=== PATIENT | female | born 1990 | race Caucasian/White ===

== ENCOUNTER 2024-12-05 12:46 | Outpatient (CLI) | payer OTHER, SELFPAY | END 2024-12-05 12:47 | disposition home or self-care (01) | LOC: US 12:47 | PROVIDERS: Visit Provider Advanced Practice Midwife | DX: Z34.91 Encounter for supervision of normal pregnancy, unspecified, first trimester (principal); Z3A.08 8 weeks gestation of pregnancy | CPT/HCPCS: 76817 ==

== ENCOUNTER 2024-12-05 14:32 | Outpatient (CLI) | payer OTHER, SELFPAY | END 2024-12-05 14:33 | disposition home or self-care (01) | PROVIDERS: Visit Provider Advanced Practice Midwife | DX: Z34.81 Encounter for supervision of other normal pregnancy, first trimester (principal); Z67.30 Type AB blood, Rh positive | CPT/HCPCS: 82565; 82570; 83020; 83021; 84156; 84450; 84460; 85660; 86592; 86703; 86704; 86706; 86762; 86787; 86803; 86850; 86900; 86901; 87086; 87340 ==

== ENCOUNTER 2024-12-08 11:34 | Outpatient (CLI) | payer OTHER, SELFPAY | END 2024-12-08 11:35 | disposition home or self-care (01) | LOC: NFLDREF 12-12 01:14 | PROVIDERS: Visit Provider Advanced Practice Midwife | DX: O09.291 Supervision of pregnancy with other poor reproductive or obstetric history, first trimester (principal); Z3A.08 8 weeks gestation of pregnancy | CPT/HCPCS: 82570; 84156 ==

== ENCOUNTER 2025-02-22 12:44 | Outpatient (CLI) | payer OTHER, SELFPAY ==
--- NOTE | 2025-02-22 13:00 | CRLHL7_ITS ---
For Patients: As a result of the Century Cures Act, medical imaging exams and procedure reports are released immediately into your electronic medical record. You may view this report before your referring provider. If you have questions, please contact your health care provider. OBSTETRICAL ULTRASOUND ??? ANATOMY SURVEY, 02/22/2025 INDICATION: anatomy survey. CLINICAL HISTORY: LMP: 10/05/2024 BLADIMIR by LMP: 07/12/2025 Gestational age: 20 weeks 0 days TECHNIQUE: Real-time broussard-scale transabdominal obstetrical ultrasound was performed. PREVIOUS ULTRASOUND: 12/05/2024 FINDINGS: position: Vertex Cervix: Visualized Technique: Transabdominal Length of closed cervix: 4.2 cm Placenta position: Posterior Technique: Transabdominal Placenta tip to internal os: 5.1 cm Umbilical cord: 3-vessel cord Placental insertion: Central Amniotic fluid: 3.9 cm SDP (greater than/equal to 2 to less than 8 cm) ANATOMY SURVEY: Observed Structures Cerebellum: Yes; 2.1 cm, 21 weeks 1 day Cisterna magna: Yes; 4.8 mm Nuchal fold: Yes; 3.2 mm Lateral ventricle: Yes; 5.9 mm CSP: Yes Midline falx: Yes Choroid plexus: Yes Spine: Yes Stomach: Yes Abdominal cord insert: Yes Urinary bladder: Yes Kidneys: Yes Diaphragm: Yes Nose/lips: Yes Orbital view: Yes Profile: Yes Upper extremities: Yes Lower extremities: Yes Hands: Yes Feet: Yes 4-chamber heart: Yes LVOT: Yes RVOT: Yes 3VV: Yes 3VTV: Yes BIOMETRY BPD: 4.8 cm, 20 weeks 3 days, 70.1% HC: 17.4 cm, 19 weeks 6 days, 37.0% AC: 14.9 cm, 20 weeks 1 day, 48.3% FL: 3.1 cm, 19 weeks 4 days, 28.5% FL/AC: 20.88% HC/AC ratio: 1.17 heart rate: 152 bpm age by this ultrasound: 20 weeks 2 days BLADIMIR by this ultrasound: 07/10/2025 Estimated weight: 320.17 grams (0 pounds 11 ounces) Percentile by BLADIMIR: 39.9% IMPRESSION: 1) Normal anatomic survey. 2) Concordance of clinical and sonographic dating. JAKE EDWARDS M.D. Diagnostic Radiologist [email or web address] Transcribed: 4:[address]/Dictated by: Jake Edwards MD @ 02/22/2025 4:02:00 PM (Electronically Signed)
== END 2025-02-22 12:45 | disposition home or self-care (01) ==
LOC: US 12:44
PROVIDERS: Visit Provider Advanced Practice Midwife
DX: Z34.82 Encounter for supervision of other normal pregnancy, second trimester (principal); Z3A.20 20 weeks gestation of pregnancy
CPT/HCPCS: 76805

== ENCOUNTER 2025-02-22 14:07 | Outpatient (CLI) | payer OTHER, SELFPAY | END 2025-02-22 14:08 | disposition home or self-care (01) | LOC: NFLDREF 14:09 | PROVIDERS: Visit Provider Advanced Practice Midwife | DX: N18.1 Chronic kidney disease, stage 1 (principal) | CPT/HCPCS: 82043; 82570 ==

== ENCOUNTER 2025-03-24 13:16 | Outpatient (CLI) | payer OTHER, SELFPAY | END 2025-03-24 13:17 | disposition home or self-care (01) | LOC: NFLDREF 03-28 12:31 | PROVIDERS: Visit Provider Advanced Practice Midwife | DX: N18.1 Chronic kidney disease, stage 1 (principal) | CPT/HCPCS: 82043; 82570 ==

== ENCOUNTER 2025-04-24 07:52 | Outpatient (CLI) | payer OTHER, SELFPAY | END 2025-04-24 07:53 | disposition home or self-care (01) | LOC: NFLDREF 04-25 14:15 | PROVIDERS: Visit Provider Advanced Practice Midwife | DX: Z34.83 Encounter for supervision of other normal pregnancy, third trimester (principal); N18.1 Chronic kidney disease, stage 1 | CPT/HCPCS: 82043; 82570; 86592 ==

== ENCOUNTER 2025-04-24 08:03 | Outpatient (CLI) | payer OTHER, SELFPAY ==
--- NOTE | 2025-04-24 08:15 | CRLHL7_ITS ---
For Patients: As a result of the Century Cures Act, medical imaging exams and procedure reports are released immediately into your electronic medical record. You may view this report before your referring provider. If you have questions, please contact your health care provider. OB ULTRASOUND FOLLOW-UP/LIMITED, 04/24/2025 CLINICAL HISTORY: Chronic HTN. COMPARISON: 02/22/2025, 12/05/2024. TECHNIQUE: Real time broussard scale imaging of the fetus was performed. Multiple transabdominal broussard-scale color and M-mode Doppler images were obtained. FINDINGS: BLADIMIR by LMP: 07/12/2025. GA: 28 weeks 5 days. Cervix: Not visualized. Positioning: Breech, matthew breech. Amniotic Fluid: 7.3 cm SDP. Placenta: Technique: TA. Placenta Position: Anterior, posterior. Dopplers: Heart Rate: 134 bpm. BIOMETRY: BPD: 7.2 cm, 28 weeks 6 days. 44% HC: 26.4 cm, 28 weeks 5 days. 19% AC: 24.8 cm, 29 weeks 0 days. 51% FL: 5.3 cm, 28 weeks 1 day. 19% FL/AC Ratio: 21.33% HC/AC Ratio: 1.07. EFW: 1262 grams, 2 lb 13 oz. age by this US: 28 weeks 5 days. BLADIMIR by this US: 07/12/2025. Percentile by BLADIMIR: 34% IMPRESSION: 1. weight is at the 34th percentile. 2. Probable succenturiate placenta lobe along the anterior uterus. Doc Bolton M.D. Body/Diagnostic Radiologist [email or web address] Transcribed: 3:49 pm DW/Dictated by: Doc Bolton MD @ 04/26/2025 3:33:00 PM (Electronically Signed)
== END 2025-04-24 08:04 | disposition home or self-care (01) ==
LOC: US 08:05
PROVIDERS: Visit Provider Advanced Practice Midwife
DX: O10.913 Unspecified pre-existing hypertension complicating pregnancy, third trimester (principal); Z3A.28 28 weeks gestation of pregnancy
CPT/HCPCS: 76816

== ENCOUNTER 2025-04-28 08:20 | Outpatient (CLI) | payer OTHER, SELFPAY | END 2025-04-28 08:21 | disposition home or self-care (01) | LOC: NFLDREF 05-04 22:43 | PROVIDERS: Visit Provider Internal Medicine Nephrology | DX: N18.1 Chronic kidney disease, stage 1 (principal) | CPT/HCPCS: 80069; 82043; 82570; 84450; 84460 ==

== ENCOUNTER 2025-05-17 07:06 | Outpatient (CLI) | payer OTHER, SELFPAY ==
--- NOTE | 2025-05-17 07:15 | CRLHL7_ITS ---
For Patients: As a result of the Century Cures Act, medical imaging exams and procedure reports are released immediately into your electronic medical record. You may view this report before your referring provider. If you have questions, please contact your health care provider. OB ULTRASOUND FOLLOW-UP GROWTH TRANSABDOMINAL Clinical History: BLADIMIR by US: 07/12/2025. GA: 32 w, 0 d. Single. Comparison: Ultrasound 04/24/2025 and 02/22/2025. INDICATION: CHTN, velamentous cord insertion. TECHNIQUE: Real time broussard scale imaging of the fetus was performed. Transabdominal imaging performed. CERVIX: Not visualized. POSITIONING: Breech. AMNIOTIC FLUID: 5.1 cm SDP (N: greater than 2 x 1 cm) PLACENTA: Technique: Transabdominal. PLACENTA POSITION: Anterior, posterior. DOPPLER: heart rate: 134 bpm. BIOMETRY: BPD: 8.0 cm. 32 w, 1 d, 47 percent. HC: 29.6 cm. 32 w, 5 d, 31 percent. AC: 27.7 cm. 31 w, 6 d, 42 percent. FL: 5.8 cm. 30 w, 2 d, 6 percent. FL/AC ratio: 20.92 percent. HC/AC ratio: 1.07. EFW: 1773 g. Weight: 3 lbs, 15 oz. age by this US: 31 w, 5 d. BLADIMIR by this US: 07/14/2025. Percentile by BLADIMIR: 23 percent. IMPRESSION: 1. Sonographic gestational age 31 weeks 5 days and sonographic due date 07/14/2025. Good correlation with dates. Normal interval growth. 2. Estimated weight 23rd percentile. Abdominal circumference 42nd percentile. 3. Velamentous cord insertion appears to be present although limited due to position. Placenta is also bilobed. Jake Wayne M.D. Diagnostic Radiologist [email or web address] SP/Dictated by: Jake Wayne MD @ 05/17/2025 5:35:00 PM (Electronically Signed)
== END 2025-05-17 07:07 | disposition home or self-care (01) ==
LOC: US 07:06
PROVIDERS: Visit Provider Advanced Practice Midwife
DX: O10.913 Unspecified pre-existing hypertension complicating pregnancy, third trimester (principal); O43.123 Velamentous insertion of umbilical cord, third trimester; Z3A.31 31 weeks gestation of pregnancy
CPT/HCPCS: 76816

== ENCOUNTER 2025-06-14 12:07 | Outpatient (CLI) | payer OTHER, SELFPAY ==
--- NOTE | 2025-06-14 12:15 | CRLHL7_ITS ---
For Patients: As a result of the Century Cures Act, medical imaging exams and procedure reports are released immediately into your electronic medical record. You may view this report before your referring provider. If you have questions, please contact your health care provider. OB ULTRASOUND LMP: 10/05/2024. BLADIMIR by LMP: 07/12/2025. GA: 36 w, 0 d. Single. INDICATION: CHTN, velamentous. TECHNIQUE: Real time grayscale imaging of the fetus was performed. Transabdominal. CERVIX: Not visualized. POSITIONING: Eliezer Breech. AMNIOTIC FLUID: 6.1 cm. SDP (N: greater than 2 x 1 cm) BIOPHYSICAL PROFILE: 2: Gross body movements 2: tone 2: Respiratory activity 2: Amniotic fluid SDP (N: greater than 2 x 1 cm) 8/8: Total score PLACENTA: Technique: Transabdominal. PLACENTA POSITION: Anterior, Posterior. DOPPLER: heart rate: 149 bpm. BIOMETRY: BPD: 8.9 cm. 35 w, 5 d, 52 percent. HC: 32.6 cm. 36 w, 6 d, 40 percent. AC: 31.1 cm. 35 w, 0 d, 32 percent. FL: 6.9 cm. 35 w, 3 d, 29 percent. FL/AC ratio: 22.17 percent. HC/AC ratio: 1.05. EFW: 2665 g. Weight: 5 lbs, 14 oz. age by this US: 35 w, 5 d. BLADIMIR by this US: 07/14/2025. Percentile by BLADIMIR: 34 percent. IMPRESSION: 1. Normal biophysical profile score 8/8. 2. Sonographic gestational age 35 weeks 5 days and sonographic due date 07/14/2025. Good correlation with dates. Normal interval growth. 3. Estimated weight 34th percentile. Abdominal circumference 32nd percentile. Jake Wayne M.D. Diagnostic Radiologist [email or web address] MI/josh moreno/Dictated by: Jake Wayne MD @ 06/14/2025 3:00:00 PM (Electronically Signed)
== END 2025-06-14 12:08 | disposition home or self-care (01) ==
PROVIDERS: Visit Provider Advanced Practice Midwife
DX: O10.913 Unspecified pre-existing hypertension complicating pregnancy, third trimester (principal); O43.123 Velamentous insertion of umbilical cord, third trimester; Z3A.35 35 weeks gestation of pregnancy
CPT/HCPCS: 76816; 76819

== ENCOUNTER 2025-06-14 15:34 | Outpatient (CLI) | payer OTHER, SELFPAY ==
[2025-06-15 14:01] LABS: Strep B DNA Probe Negative (Negative)
[2025-06-15 14:50] LABS: Strep B Susceptibility Needed? No
== END 2025-06-14 15:35 | disposition home or self-care (01) ==
LOC: NFLDREF 15:34
PROVIDERS: Visit Provider Advanced Practice Midwife
DX: O10.913 Unspecified pre-existing hypertension complicating pregnancy, third trimester (principal); Z3A.36 36 weeks gestation of pregnancy
CPT/HCPCS: 87081; 87653

== ENCOUNTER 2025-07-07 05:39 | Inpatient (IN) | payer OTHER, SELFPAY ==
[2025-07-07] VITALS (22 sets, daily range): BP systolic 116–143; BP diastolic 60–88; PULSE 55–73; RESP 12–20; TEMP 36.4–37.4; O2SAT 96–100; BMI 36.0
[2025-07-07] MEDS: LACTATED RINGERS 1000 ML 1,000 ML 999 ML IV (06:13)
[2025-07-07 06:19] LABS: Hematocrit* 37.0 % (33.0-51.0); Hemoglobin* 12.4 gm/dL (12.0-16.0); Immature Granulocytes Abs Auto 0.10 K/uL (0.00-0.30); Immature Granulocytes Pct Auto 1.1 %; Lymphocytes Absolute Auto 1.40 K/uL (0.90-2.90); Mean Corpuscular HGB Conc 34 gm/dL (32-36); Mean Corpuscular Hemoglobin 30 pg (26-34); Mean Corpuscular Volume 89 fL (80-100); RDW Coefficient of Variation % 13.6 % (11.5-15.5); Red Blood Count* 4.16 m/uL (4.00-5.20); Slide Review Reflex No; White Blood Count* 8.89 K/uL (4.50-11.00)
[2025-07-07 06:37] LABS: Alanine Aminotransferase* 17 U/L (4-35); Aspartate Amino Transferase* 45 U/L (12-35); Blood Urea Nitrogen* 8 mg/dL (5-24); Creatinine* 0.4 mg/dL (0.5-1.5); Estimated Glomerular Filt Rate 133 ml/min
--- NOTE | 2025-07-07 07:13 | W.PM.LDBA ---
Subjective History of Present Illness Date Seen: 07/07/25 Narrative: Patient is being admitted to Labor and Delivery for repeat . She is a 35 year old at 39 2/7 weeks gestation. Her full history and physical was dictated by Nimco Hickman CNM on 06/26/25. Please see this for details. Specific Issues/Plans Partner: Srikanth? Daughter: Misa H&P:?Completed 06/26/2025 by GIOVANY Jeffries #? CHTN Hx of superimposed pre-eclampsia w/ SF last , magnesium given (Pt reports HELLP, this is not in the records) Baseline labs: WNL, 24 hour p/c ratio 0.32 Recommended baby ASA Previous considered CHTN but normal BP's between pregnancies Growth US every 4 weeks starting at 28 weeks.? testing form completed 04/24 28 week growth: 34%ile 32 week growth: 23%ile 36 week growth: 34%ile Delivery recommended at 38 0/7-39 6/7weeks? #? Stage 1?Chronic Kidney disease Nephrology visit at 12 weeks, pt to schedule already established with them: completed 01/31/2025 Recommend close monitor of BP, initiate labetalol if 140/90s Baby ASA, continue Recommend monthly urinalysis with microalbumin to creatinine ratio: ordered and have remained WNL Formal follow-up with nephrology in April with labs (urine and renal panel), all stable. Pt reports she will return to him Available as needed for concerns or questions in Reports that NSAIDS are fine # Hx of section C/s for Arrest of descent in LOT presentation, pushed x 3 hours Desires repeat c/s. Requested 07/05/25 at 39w0d. Consult 05/10/25 with NDP, consent reviewed and signed. Requested delivery on 07/05/25. # Daughter has low platelets (<10K), no formal diagnosis Consider avoiding FSE/IUPC: Desires RLTCS # Succenturiate Placenta with, 32 wk US reports Velamentous cord insertion Pt desires to continue testing with suspicion for velamentous. Addendum requested to address velamentous Weekly testing starting at 36 weeks: testing form completed 04/24 Growth US every 4 weeks starting at 28 weeks: see above Recommend delivery: elective considered at >39 0/7 weeks # Eliezer Breech presentation at 36 weeks ? Imaging:?? Anatomy US (02/22/2025): IMPRESSION: 1)Normal anatomic survey. 2)Concordance of clinical and sonographic dating. ? Growth US (04/24/2025): EFW 34%; bilobed placenta with anterior and posterior lobes and suspected velamentous cord insertion Growth US (05/17/2025): IMPRESSION: 1. Sonographic gestational age 31 weeks 5 days and sonographic due date 07/14/2025. Good correlation with dates. Normal interval growth. 2. Estimated weight 23rd percentile. Abdominal circumference 42nd percentile. 3. Velamentous cord insertion appears to be present although limited due to position. Placenta is also bilobed. Growth US (06/14/2025): IMPRESSION: 1. Normal biophysical profile score /8. 2. Sonographic gestational age 35 weeks 5 days and sonographic due date 07/14/2025. Good correlation with dates. Normal interval growth. 3. Estimated weight 34th percentile. Abdominal circumference 32nd percentile. Vaccinations:?? COVID: initial series, not boosted? Flu: 07/12/2024? Tdap: 05/04/2025? RSV: 06/05/2025 32 week mental health: stable Last pap:?01/2022, NILM, HPV neg OB - Problem Based A/P Additional Plan (1) History of section: Status: Acute (2) Chronic hypertension affecting : Status: Acute Delivery/Labor/Induction Plan Plan: Section OB Result Labs Labs: Labs today notable for BUN 8, creatinine 0.4, estimated GFR 133 AST 45, ALT 17 CBC with hemoglobin 12.4, platelets 264 OB Exam Physical Exam Vital signs: Pulse BP Pulse Ox 70 138/88 98 07/07/25 06:13 07/07/25 06:13 07/07/25 05:50 Narrative: Physical exam: General: No acute distress Psych: Alert and oriented x3, full affect HEENT: Normocephalic, atraumatic Heart: Regular rate and rhythm, no murmur rub or gallop Lungs: Clear to auscultation bilaterally Abdomen: Soft, nontender, gravid, breech presentation Lower extremities: No edema or erythema tracing: Baseline 135, accelerations present, no deceleration, moderate variability
--- NOTE | 2025-07-07 08:22 | P.OBPRC_ITS ---
Procedure Date of procedure: 07/07/25 Pre-op diagnosis: 39 weeks, 2 days gestation Previous delivery Matthew breech presentation Post-op diagnosis: same Procedure Done: Global Will [facility] bill your pro fee for this procedure?: Yes Blood Loss Measurement Type: QBL (312) Bakri Used: No IV fluids (mL): 1,200 Urine Output Comment: Clear Surgeon: Iris Cortes MD Link Fabric Machine Operator: RAGHAVENDRA Muniz Anesthesia Type: Spinal Findings: 1. Male , matthew breech presentation with sacrum left anterior, Apgars 8 and 9, weight 6 lb, 14 oz. 2. Adhesions of the omentum to the anterior abdominal wall. Otherwise normal appearance of uterus, bilateral tubes and ovaries. Procedure Name: Repeat delivery Procedure Description: Patient was taken to the operating room with IV running. She received cefazolin in preoperative prophylaxis. Spinal anesthesia had previously been administered. Corrales catheter was inserted. She was prepped and draped in the usual sterile fashion. Anesthesia was tested and found to be adequate. A low-transverse skin incision was made with a scalpel and carried through to the underlying layer of fascia with the scalpel. The subcutaneous fat was dissected off the underlying fascia with Bovie. The fascia was nicked in the midline with a scalpel, and this incision was extended laterally with scissors. The rectus muscles were in the midline. Peritoneum was identified and entered bluntly. Bovie was used to widen this opening laterally. Omental adhesions were noted to the peritoneum near the cephalic aspect of the peritoneal entry point. These adhesions were lysed with a combination of electrocautery and by cross-clamping, cutting, and suture ligating the ends. Hemostasis of the dissection bed was noted. The omentum was then moved out of the way. Lucho O retractor was inserted and tightened down, providing excellent visualization of the lower uterine segment. The bladder reflection was found to be well below the planned site for hysterotomy. Low-transverse uterine incision was made with a scalpel. Incision was widened bluntly. The infant's breech was grasped through the hysterotomy, rotated to sacrum anterior, and the hips were delivered with gentle traction, followed by bilateral legs. Body was rotated 1st to the left, then to the right to allow the arms to be swept across the chest and delivered. The head was delivered with the help of fundal pressure, maintaining a neutral position. Cord was clamped and cut after 30 seconds. Infant was handed off to attending pediatric provider. The placenta was delivered with gentle traction on the cord. The uterus was exteriorized and cleaned of all clots and debris with the dry lap pad. The hysterotomy was reapproximated with 0 Vicryl in a running, locked fashion. One additional sosjdj-on-byxbr suture was used to obtain excellent hemostasis. Second layer of the same suture was used in imbricating fashion to obtain hemostasis. The adnexa were examined and noted to be normal in appearance. The cul-de-sac and gutters were cleansed with dampened laparotomy sponge, removing any further clots and debris. The uterus was returned to the abdomen. The Lucho O retractor was removed. The hysterotomy was reexamined and found to be hemostatic. The peritoneum was reapproximated with 2 0 Vicryl in a running fashion. The rectus muscles were examined and found to be hemostatic. The fascia was reapproximated with 0 Vicryl in a running fashion. Subcutaneous fat was irrigated and Bovie used on oozing vessels. The subcutaneous fat was reapproximated with 2 0 plain gut suture in an interrupted fashion. The skin was closed with a subcuticular stitch of 4-0 Monocryl. Surgical glue was applied above this. Patient tolerated procedure well was taken to recovery area in stable condition. Complications: None Pathology: specimen obtained, sent to pathology (Placenta) Surgery Debrief Performed: Yes Surgery Debrief Comment: Postoperative debrief was verbalized with OR staff, including a verification of pathology specimens to be sent as described above.
--- NOTE | 2025-07-07 08:56 | P.ANES_ITS ---
Anesthesia Charges Start Date/Time Anesthesia Start Date: 07/07/25 Anesthesia Start Time: 07:17 Stop Date/Time Anesthesia Stop Date: 07/07/25 Anesthesia Stop Time: 08:41 Coding CPT Codes CPT Codes: ANESTH CS DELIVERY - 58890 ([id number]) P2 - PATIENT W/MILD SYST DISEASE, QK - PROPERTY AND CASUALTY INSURANCE AGENT 2-4 CNCRNT ANES PROC, QX - RN INTERVENTIONAL SVC W/ MD MED DIRECTION
--- NOTE | 2025-07-07 08:56 | W.ANESCHARGE ---
Anesthesia Charges Start Date/Time Anesthesia Start Date: 07/07/25 Anesthesia Start Time: 07:17 Stop Date/Time Anesthesia Stop Date: 07/07/25 Anesthesia Stop Time: 08:41 Coding CPT Codes CPT Codes: ANESTH CS DELIVERY - 81951 ([id number]) P2 - PATIENT W/MILD SYST DISEASE, QK - SOUND ASSISTANT 2-4 CNCRNT ANES PROC, QX - LABORER DRYING DEPARTMENT SVC W/ MD MED DIRECTION
--- NOTE | 2025-07-07 08:57 | P.NB_ITS ---
Nerve Block Nerve Block Time Seen by Provider: 08: Date Seen: 07/07/25 Type of block requested by surgeon for post-operative analgesia: TAP Side: bilateral Time out performed: Yes Verification of patient name: Yes Verification of date of : Yes Name of person performing procedure: Lizzeth Siegel Continuous monitoring Was continuous monitoring of O2 sat, B/P, property assessment monitor, recorded every 15 minutes?: Yes Procedure Checklist: sterile prep, needles and gloves Ultrasound guided. Images saved: Yes Medications given in 5ml increments after negative aspiration: Marcaine %: 0.25 mL: 30 Needle gauge: 20 and Exparel mL: 10 Needle gauge: 20 Patient tolerated procedure well: Yes Block Charges Block Charge (with Pro Fee): TAP Bilateral Use of Ultrasound Machine for Block: Yes- US Guidance/pain block
--- NOTE | 2025-07-07 09:08 | P.ANES_ITS ---
Anesthesia Charges Start Date/Time Anesthesia Start Date: 07/07/25 Anesthesia Start Time: 07:17 Stop Date/Time Anesthesia Stop Date: 07/07/25 Anesthesia Stop Time: 08:41 Coding CPT Codes CPT Codes: ANESTH CS DELIVERY - 39223 ([id number]) QK - RAIL CAR LOADER 2-4 CNCRNT ANES PROC, QX - CLINICAL SOCIAL WORKER SVC W/ MD MED DIRECTION, P2 - PATIENT W/MILD SYST DISEASE
--- NOTE | 2025-07-07 09:08 | W.ANESCHARGE ---
Anesthesia Charges Start Date/Time Anesthesia Start Date: 07/07/25 Anesthesia Start Time: 07:17 Stop Date/Time Anesthesia Stop Date: 07/07/25 Anesthesia Stop Time: 08:41 Coding CPT Codes CPT Codes: ANESTH CS DELIVERY - 49034 ([id number]) QK - ELECTRONIC DEVICE REPAIRER 2-4 CNCRNT ANES PROC, QX - MANAGER UNDERWRITING SVC W/ MD MED DIRECTION, P2 - PATIENT W/MILD SYST DISEASE
[2025-07-07] MEDS: LACTATED RINGERS 1000 ML 1,000 ML 125 ML IV (10:21)
[2025-07-07] MEDS: DOCUSATE SODIUM 100 MG CAPSULE PO (11:02)
[2025-07-07] MEDS: ACETAMINOPHEN 500 MG TABLET 1000 MG PO ×2 (11:02→17:44)
[2025-07-08] MEDS: ACETAMINOPHEN 500 MG TABLET 1000 MG PO ×4 (01:22→19:46)
[2025-07-08 01:33] VITALS: BP 126/80; PULSE 56; RESP 16; TEMP 36.7; O2SAT 96
[2025-07-08 06:39] LABS: Hematocrit* 33.2 % (33.0-51.0); Hemoglobin* 11.1 gm/dL (12.0-16.0); Immature Granulocytes Pct Auto 0.2 %; Lymphocytes Absolute Auto 1.30 K/uL (0.90-2.90); Mean Corpuscular HGB Conc 33 gm/dL (32-36); Mean Corpuscular Hemoglobin 30 pg (26-34); Mean Corpuscular Volume 91 fL (80-100); RDW Coefficient of Variation % 13.7 % (11.5-15.5); Red Blood Count* 3.67 m/uL (4.00-5.20); White Blood Count* 12.68 K/uL (4.50-11.00)
[2025-07-08 06:40] VITALS: BP 123/74; PULSE 58; RESP 16; TEMP 36.9; O2SAT 96
[2025-07-08 06:41] LABS: Immature Granulocytes Abs Auto 0.00 K/uL (0.00-0.30); Slide Review Reflex No
[2025-07-08 07:01] LABS: Alanine Aminotransferase* 16 U/L (4-35); Aspartate Amino Transferase* 30 U/L (12-35); Blood Urea Nitrogen* 8 mg/dL (5-24); Creatinine* 0.5 mg/dL (0.5-1.5); Est. Creatinine Clearance* 131.15; Estimated Glomerular Filt Rate 126 ml/min
[2025-07-08 09:00] VITALS: BP 122/64; PULSE 70; RESP 16; TEMP 36.7; O2SAT 97
--- NOTE | 2025-07-08 09:05 | P.OBPN_ITS ---
OB - PN:Subj Subjective Date Seen: 07/08/25 Narrative: Ashlyn is a 35 y.o. G 2 P 2 who was admitted to L & D for repeat c/s. ?She had a section that was uncomplicated. The patient feels well. ?The pain is well controlled with current medications. ?She has no new complaints. ?She is breast feeding and reports things are going well. the patient has done well.? Vitals have been stable.? She has remained afebrile.? Has a good appetite, is tolerating a general diet. She is voiding without difficulty.? She is passing gas and has not had a bowel movement.? She is ambulating and denies any dizziness.? Has small amount of rubra lochia. Problems: n/a OB - PN: Obj Exam Physical Exam: Vital signs: Temp Pulse Resp BP Pulse Ox O2 Del Method 98.4 F 58 L 16 123/74 96 Room Air 07/08/25 06:40 07/08/25 06:40 07/08/25 06:40 07/08/25 06:40 07/08/25 06:40 07/08/25 06:40 Narrative: GENERAL APPEARANCE:? normal affect, alert, no distress MOOD:? appropriate CHEST:? clear to auscultation HEART:? regular rate and rhythm ABDOMEN:? soft, non-tender the uterine fundus is At Umbilicus, Midline and is appropriate for the stage of recovery. EXTREMITIES:? normal and no edema INCISION: Healing well, no surrounding erythema, abnormal induration or discharge OB - PN: Obj Data Labs Labs: Laboratory Results - last 24 hr 07/08/25 06:20 WBC 12.68 H RBC 3.67 L Hgb 11.1 L Hct 33.2 MCV 91 MCH 30 MCHC 33 RDW Coeff of Ashley 13.7 Plt Count 240 Neut % (Auto) 82.7 H Lymph % (Auto) 10.3 L [place] % (Auto) 6.3 Eos % (Auto) 0.2 Baso % (Auto) 0.3 Neut # (Auto) 10.50 H Lymph # (Auto) 1.30 [place] # (Auto) 0.80 Eos # (Auto) 0.00 Baso # (Auto) 0.00 Abs Immat Gran (auto) 0.00 Imm/Tot Granulo (auto) 0.2 BUN 8 Creatinine 0.5 Estimated Creat Clear 131.15 Estimated GFR 126 AST 30 ALT 16 OB - PN: A/P Delivery Assessment and Plan (1) care and examination immediately after delivery: Status: Acute (2) Chronic hypertension affecting : Status: Acute (3) Lactating mother: Status: Acute (4) Status post section: Status: Acute Plan day: 1 Plan: routine care Comments: Routine post-op care , may see if needed? Hgb 11.1.? Chronic HTN. Monitor BP closely. Anticipate discharge home tomorrow or the following day.
[2025-07-08] MEDS: DOCUSATE SODIUM 100 MG CAPSULE PO (10:11)
[2025-07-08 13:30] VITALS: BP 136/88; PULSE 68; RESP 18; TEMP 36.8; O2SAT 98
[2025-07-08] MEDS: SODIUM CHLORIDE 0.9 % (FLUSH) 10 ML SYRINGE IVF (15:53)
[2025-07-08 17:34] VITALS: BP 134/80; PULSE 58; RESP 16; TEMP 36.7; O2SAT 96
[2025-07-08] MEDS: IBUPROFEN 600 MG TABLET PO (21:51)
[2025-07-08 23:15] VITALS: BP 136/85; PULSE 62; RESP 16; TEMP 36.7; O2SAT 96
[2025-07-09] MEDS: ACETAMINOPHEN 500 MG TABLET 1000 MG PO ×2 (02:28→08:58)
[2025-07-09] MEDS: IBUPROFEN 600 MG TABLET PO ×2 (04:49→10:59)
[2025-07-09 05:15] VITALS: BP 138/84; PULSE 54; RESP 16; O2SAT 98
--- NOTE | 2025-07-09 08:38 | P.DS_ITS ---
DS: Providers Provider Date Seen: 07/09/25 Date of admission: 07/07/25 05:39 Primary care physician: Not a Local Provider Admitting Clinician: Iris Cortes MD Attending Physician on discharge: Nimco Hickman APRN, CNM DS: Diagnosis Discharge Diagnosis (1) care and examination immediately after delivery: Status: Acute (2) Status post section: Status: Acute (3) Lactating mother: Status: Acute (4) Chronic hypertension affecting : Status: Acute Exam Narrative: Exam Narrative: GENERAL APPEARANCE:? normal affect, alert, no distress MOOD:? appropriate CHEST:? clear to auscultation HEART:? regular rate and rhythm ABDOMEN:? soft, non-tender the uterine fundus is 1 below Umbilicus, Midline and is appropriate for the stage of recovery. EXTREMITIES:? normal and +1 edema INCISION: Healing well, no surrounding erythema, abnormal induration or discharge Const: Vital Signs, click to edit/add: Vital Signs - 24 hr 07/08/25 09:00 07/08/25 13:30 07/08/25 17:34 Temperature 98.0 F 98.2 F 98.1 F Pulse Rate [Left P ulse Oximeter] 70 68 58 L Respiratory Rate 16 18 16 Blood Pressure [Ri ght Arm] 122/64 136/88 134/80 Pulse Oximetry 97 98 96 Oxygen Delivery Me thod Room Air Room Air Room Air 07/08/25 23:15 07/09/25 05:15 Temperature 98.0 F Pulse Rate [Left P ulse Oximeter] 62 54 L Respiratory Rate 16 16 Blood Pressure [Ri ght Arm] 136/85 138/84 Pulse Oximetry 96 98 Oxygen Delivery Me thod Room Air Room Air Documenting provider has reviewed patient's vital signs: yes OB - DS: Summary Hospital Course Hospital Course: Ashlyn is a 35 y.o. G 2 P 2 who was admitted to [facility] for repeat c/s. ?She had a section that was uncomplicated. The patient feels well. ?The pain is well controlled with current medications. ?She has no new complaints. ?She is breast feeding and reports things are going well. the patient has done well.? Vitals have been stable.? She has remained afebrile.? Has a good appetite, is tolerating a general diet. ?She is voiding without difficulty.? She is passing gas and has not had a bowel movement.? She is ambulating and denies any dizziness.? Has small amount of rubra lochia. BP has been running 130/80's over the last 24 hours. Discussed with MD personal lines sales executive about starting long acting. She agrees with plan. Oral nifedipine XR 30 mg started daily. Problems: Chronic HTN Discharge home with baby.? Follow up in 2 weeks and 6 weeks.? , may see if needed? Hgb 11.1. ? CHTN? Labs WNL? Has BP cuff at home? Follow up in 3-5 days, desires virtual visit Call for signs/symptoms of preeclampsia? For pain control of perineum, breast and pelvic pain, take 600 mg Ibuprofen every 6 hours as needed by mouth or 1000 mg acetaminophen (Tylenol) every 6 hours by mouth as needed. You can alternate these so you are taking something every 3 hours as needed. A heating pad can also be used for your abdomen or breasts. You may also take docusate sodium up to twice daily to soften your stools and help to prevent constipation. You may wean off of it when your stools return to normal.? Peripartum Data Procedures: Procedures Operation Date: 07/07/25 07:15 Actual Procedure Side Surgeon p Repeat Section Not Applicable Iris Cortes MD complications: none Embudo Gender: Male Infant Discharge Plan: Home Status at Discharge Functional status at discharge: independent ambulation Overall status at discharge: patient is progressing back to baseline Time Spent with Patient Time attestation: Total time spent providing and/or coordinating discharge services: Time spent: Less than 30 minutes Discharge Plan Discharge Disposition: Home, Self-Care Date of Admission: 07/07/25 05:39 Attending Provider on Discharge: Nimco Hickman Primary Care Provider: Provider,Not a Local Condition: Stable Anticipated Discharge Date/Time: 07/09/25 12:00 Discharge Medications: New nifedipine 30 mg Tablet Extended Release 30 mg PO DAILY Qty: 30 0RF acetaminophen 500 mg Tablet 1,000 mg PO Q6H PRN (Reason: Pain) Qty: 0 0RF docusate sodium 100 mg Capsule 100 mg PO DAILY Qty: 90 0RF ibuprofen 600 mg Tablet 600 mg PO Q6H PRN (Reason: Pain) Qty: 60 0RF oxycodone 5 mg Tablet 5 - 10 mg PO Q4H PRN (Reason: Pain) Qty: 15 0RF Continued PNV [id number] 30 mg iron-10 mg iron-1 mg capsule 1 cap PO DAILY calcium carbonate [Tums] 200 mg calcium (500 mg) tablet,chewable 200 mg PO BID PRN cholecalciferol (vitamin D3) 50 mcg (2,000 unit) capsule 50 mcg PO QDAY omeprazole 20 mg capsule,delayed release(DR/EC) 20 mg PO QDAY Qty: 90 0RF Discontinued aspirin 81 mg tablet 81 mg PO QDAY Discharge Orders: Discharge Order (Routine); Ordered 07/09/25 Ordered By: Nimco Hickman Patient Education: Bupivacaine Liposome (By injection), OB Over the Counter Medication Information, OB Vaginal/Breast Feeding Additional Instructions: Discharge instructions were reviewed with the patient including signs and symptoms of infection and home going medications Lifting Restrictions: 20 pounds for 6 weeks No not submerge incision under water X 2 weeks? Nothing vaginally for 6 weeks: no tampons or intercourse Do not drive while taking narcotic pain medication(s) Off Work or School for 8 weeks Follow [facility] for a BP check?3-5 days, may be virtual if needed * Call with BP greater than or equal to 160/110 * Hold BP medication if BP is less than 110/60 * Severe headache that doesn't improve after taking medications * Changes in vision, including temporary loss of vision, blurred vision, and/or light sensitivity * Upper abdominal pain (usually under ribs on the right side) 2-week visit: incision check, discuss infant feeding concerns, review control options and screen for anxiety/depression. 6-week visit for an annual exam. consultation services are available to all mothers and babies for the first year after delivery.? To make an appointment, please call [phone]. Activity Level: Activity as Tolerated Discharge Diet: Regular Follow Up Appointments: [facility] [Provider Group] Forms: Patient Belongings, MyHealth Info Instructions
[2025-07-09 08:49] VITALS: BP 135/83; PULSE 62; RESP 16; TEMP 36.9; O2SAT 97
[2025-07-09] MEDS: DOCUSATE SODIUM 100 MG CAPSULE PO (08:57)
[2025-07-09 11:02] VITALS: BP 130/79
--- NOTE | 2025-07-10 03:44 | PM.ANPOST ---
Post Anesthesia Note Post Anesthesia Note Patient seen: Inpatient Respiratory Status: adequate Cardiovascular Status: adequate Mental Status: baseline Pain: adequate Temp: baseline Anesthetic awareness: N/A Complications: none Follow care: none
== END 2025-07-09 13:30 | disposition home or self-care (01) | DRG 787 ==
PROVIDERS: Admitting Provider Obstetrics & Gynecology; Visit Provider Obstetrics & Gynecology
PROC: 10D00Z1 Extraction of Products of Conception, Low, Open Approach (ICD-10-PCS; CPT 59514; principal; 2025-07-07 07:15)
DX: O34.211 Maternal care for low transverse scar from previous cesarean delivery (principal); O10.92 Unspecified pre-existing hypertension complicating childbirth; O32.1XX0 Maternal care for breech presentation, not applicable or unspecified; G89.18 Other acute postprocedural pain; I12.9 Hypertensive chronic kidney disease with stage 1 through stage 4 chronic kidney disease, or unspecified chronic kidney disease; N18.1 Chronic kidney disease, stage 1; Z3A.39 39 weeks gestation of pregnancy; Z37.0 Single live birth
CPT/HCPCS: 01961; 36415; 64488; 76942; 82565; 84450; 84460; 84520; 85025; 86592; 86850; 86900; 86901; 88307; A4314; A9270; J0665; J0666; J0690; J1100; J1885; J2371; J2405; J2590; J7120

== ENCOUNTER 2025-08-18 13:00 | Outpatient (CLI) | payer OTHER, SELFPAY | END 2025-08-18 13:01 | disposition home or self-care (01) | LOC: NFLDREF 08-24 17:02 | PROVIDERS: Visit Provider Internal Medicine Nephrology | DX: O12.15 Gestational proteinuria, complicating the puerperium (principal) | CPT/HCPCS: 80069; 82043; 82570; 84450; 84460; 84550 ==